=== PATIENT | male | born 1995 | race Asian ===

== ENCOUNTER 2020-10-27 01:17 | Emergency (ER) | payer SELFPAY ==
[~2020-10-27] VITALS: Ht 170.2 cm; Wt 62.0 kg
[2020-10-27] MEDS ORDERED: ACETAMINOPHEN 325MG TABLET PO ONE (03:00)
[2020-10-27] MEDS ORDERED: IBUP-2028 MT (04:13)
[2020-10-27] MEDS ORDERED: BENZ-16 MT (04:13)
[2020-10-27 04:28] VITALS: BP 117/65
== END 2020-10-27 04:29 | disposition home or self-care (01) ==
LOC: ER 01:17
DX: M79.18 Myalgia, other site (principal); R53.1 Weakness; Z20.822 Contact with and (suspected) exposure to COVID-19; R05 Cough; R19.7 Diarrhea, unspecified; R11.0 Nausea
CPT/HCPCS: 71045; 87426; 99284